=== PATIENT | female | born 1985 | race Caucasian/White ===

== ENCOUNTER → 2016-12-25 | Outpatient (REF) ==
[2005-06-10 09:49] VITALS: TEMP 98.6
[~2016-12-25] MED LIST: FLEXERIL10 MG PO; MOTRIN 600600 MG/TAB PO; NKDA; NORCO 325 MG-51 TAB PO; PERCOCET 325 MG1 TA2 PO; ZOLOFT50 MG PO
[2016-12-25 18:26] LABS: C-REACTIVE PROTEIN < 0.5 mg/dL (0.0-0.9)
[2016-12-25 18:50] LABS: THYROID STIMULATING HORMONE 0.706 uIU/mL (0.465-4.680)
== END ==
LOC: ZLAB.WCH 18:05
DX: Z01.89 Encounter for other specified special examinations (principal)

== ENCOUNTER 2022-03-13 12:07 | Day surgery (SDC) | payer OTHER ==
[~2022-03-13] VITALS: Ht 170.2 cm; Wt 98.5 kg
[2022-03-13] VITALS (7 sets, daily range): BP systolic 113–131; BP diastolic 60–82; PULSE 57–67; TEMP 97.9–98.2
[2022-03-13] MEDS ORDERED: WELLBUTRIN XL150 MG PO (12:54)
[2022-03-13 13:30] LABS: BASO % 0.5 % (0.0-2.0); EOS # 0.1 K/mm3 (0.0-0.7); EOS % 1.9 % (0.0-4.0); GRAN # 3.7 K/mm3 (1.4-6.5); GRAN % 58.2 % (42.2-75.2); HEMOGLOBIN 12.5 g/dl (12.5-16.0); LYMPH # 1.9 K/mm3 (1.2-3.4); LYMPH % 30.3 % (20.0-51.0); MEAN CELL VOLUME 93 fl (80.0-100.0); MEAN CORPUSCULAR HEMOGLOBIN 32 pg (27-31); MEAN CORPUSCULAR HGB CONC 35 g/dl (33.0-37.0); MEAN PLATELET VOLUME 10.2 fl (7.4-10.4); MONO # 0.6 K/mm3 (0.1-0.6); MONO % 8.9 % (1.7-9.3); PLATELET COUNT 235 K/mm3 (130-400); RED BLOOD COUNT 3.89 M/mm3 (4.10-5.30)
[2022-03-13 13:44] LABS: ALBUMIN 3.5 gm/dL (3.5-5.0); BILIRUBIN,TOTAL 0.4 mg/dL (0.2-1.2); CALCIUM 8.6 mg/dL (8.4-10.2); CREATININE, serum 0.81 mg/dL (0.57-1.11); TOTAL PROTEIN 6.2 gm/dL (6.2-8.1)
[2022-03-13 13:45] LABS: HEMATOCRIT 36.2 % (37.0-47.0)
[2022-03-13] MEDS ORDERED: MOTRIN 600600 MG/TAB PO (17:35)
[2022-03-13] MEDS ORDERED: PERCOCET 325 MG1 TA2 PO (17:35)
--- NOTE | 2022-03-13 17:50 | NUR ---
Patient arrived from PACU to room 349 at this time, alert/oriented, vital signs stable, pain mild and controlled in RUQ, also reports some referred gas pains in her shoulders/ explained this is no uncommon and will pass with time, 5x Lap sie/ glued, no drainage and HANSEL, tolerating PO liquid, will continue to monitor, family in the room
--- NOTE | 2022-03-13 18:40 | NUR ---
continues to do well post-op, VSS, IV saline lock as she is tolerating PO fluids, family in the room, will continue to monitor
--- NOTE | 2022-03-13 20:00 | NUR ---
PATIENT IS A&O. VSS. DENIES PAIN OR NAUSEA. PATIENT WAS ABLE TO TOLERATED ORAL INTAKE BUT NEEDS/WANTS TO TRY AND VOID FOR THE FIRST TIME POST OP. PATIENT IS AN [employer]Y STANDY BY ASSIST TO BATHROOM. HEAD TO TOE ASSESSMENT WNL. PATIENT HOPING TO DISCHARGE HOME SOON. MOTHER AT BEDSIDE. PATIENT IN BATHROOM.
--- NOTE | 2022-03-13 20:30 | NUR ---
PATIENT MEET DISCHARGE CRITERIA AND READY TO GO HOME. MOTHER AT BEDSIDE. GAVE DISCHARGE INSTRUCTIONS, E-SCRIPTS SENT, AND DISCUSSED PATIENT CALLING FOR F/U APT. ANSWERED QUESTIONS/CONCERNS. DC'D IV SITE AND COVERED WITH GAUZE & COBAN. PATIENT IS DRESSED, PACKED AND DISCHARGED TO [facility].
== END 2022-03-13 20:30 | disposition home or self-care (01) ==
LOC: SDCO 12:07 → SURG 18:35 → SDCO 20:30
PROVIDERS: Surgery
DX: K80.10 Calculus of gallbladder with chronic cholecystitis without obstruction (principal); E66.9 Obesity, unspecified; Z68.35 Body mass index [BMI] 35.0-35.9, adult; F17.210 Nicotine dependence, cigarettes, uncomplicated; Z28.310 Unvaccinated for COVID-19; Z28.9 Immunization not carried out for unspecified reason
CPT/HCPCS: OP; J0690; J1100; J1885; J2405; J2704; J3010; J7120; Q9967